=== PATIENT | male | born 1940 | race Caucasian/White ===

== ENCOUNTER 2023-01-13 17:11 | Inpatient (IN) | payer MEDICARE ==
[~2023-01-13] VITALS: Ht 190.5 cm; Wt 112.0 kg
[~2023-01-13 17:11] MED LIST: ASPIRIN E.C. 8181 MG PO; AVODART 0.5MG0.5 MG PO; CALTRATE 600600 MG PO; CENTRUM SILVER1 CTB PO; MYSOLINE 5050 MG/TAB PO; SIMVASTATIN80 MG PO; VITAMIN E1000 U/CAP PO
[2023-01-14 09:18] LABS: BILIRUBIN,TOTAL 0.4 mg/dL (0.2-1.2); CALCIUM 9.3 mg/dL (8.4-10.2); CREATININE, serum 1.02 mg/dL (0.72-1.25); POTASSIUM 4.5 mmol/L (3.5-4.5); TOTAL PROTEIN 6.4 gm/dL (6.2-8.1)
[2023-01-14] MEDS ORDERED: ELIQUIS 2.5 PO (09:24)
[2023-01-14] MEDS ORDERED: NORVASC 10MG10 MG PO (09:24)
[2023-01-14] MEDS ORDERED: LIPITOR20 MG PO (09:25)
[2023-01-14] MEDS ORDERED: ULTRAM 50MG TAB50 MG PO (09:25)
[2023-01-14] MEDS ORDERED: PROBIOTIC ACID1 EAC3 PO (09:27)
[2023-01-14] MEDS ORDERED: MYRBETR50MG PO (09:27)
[2023-01-14 09:29] LABS: BASO % 0.4 % (0.0-2.0); EOS # 0.2 K/mm3 (0.0-0.7); EOS % 1.9 % (0.0-4.0); GRAN # 5.7 K/mm3 (1.4-6.5); HEMATOCRIT 44.1 % (42.0-52.0); HEMOGLOBIN 14.9 g/dl (13.5-18.0); LYMPH # 1.4 K/mm3 (1.2-3.4); LYMPH % 16.8 % (20.0-51.0); MEAN CELL VOLUME 97 fl (80.0-100.0); MEAN CORPUSCULAR HEMOGLOBIN 33 pg (27-31); MEAN CORPUSCULAR HGB CONC 34 g/dl (33.0-37.0); MEAN PLATELET VOLUME 10.4 fl (7.4-10.4); MONO % 11.7 % (1.7-9.3); PLATELET COUNT 187 K/mm3 (130-400); RED BLOOD COUNT 4.53 M/mm3 (4.20-5.60); REDCELL DISTRIBUTION WIDTH-CV 12.4 % (11.5-14.5)
[2023-01-14 09:31] LABS: INR 1.4 (0.8-3.0); PROTHROMBIN TIME 15.1 SECONDS (9.7-12.8)
[2023-01-14 12:19] VITALS: BP 118/71; PULSE 105; TEMP 97.6
[2023-01-14 12:30] VITALS: BP_SYST 118
[2023-01-14 15:39] VITALS: BP 116/81; PULSE 87; TEMP 97.4
[2023-01-14 15:44] VITALS: BP_SYST 116
[2023-01-14 20:05] VITALS: BP 125/87; PULSE 93; TEMP 98.2
[2023-01-14 20:30] VITALS: BP_SYST 125
[2023-01-15] VITALS (10 sets, daily range): BP systolic 100–124; BP diastolic 62–87; PULSE 58–106; TEMP 97.4–987
[2023-01-16] VITALS (10 sets, daily range): BP systolic 102–134; BP diastolic 54–87; PULSE 58–84; TEMP 97.7–97.9
[2023-01-16 09:09] LABS: BASO % 0.4 % (0.0-2.0); EOS # 0.3 K/mm3 (0.0-0.7); GRAN # 5.6 K/mm3 (1.4-6.5); HEMATOCRIT 45.5 % (42.0-52.0); HEMOGLOBIN 15.4 g/dl (13.5-18.0); LYMPH # 1.4 K/mm3 (1.2-3.4); MEAN CELL VOLUME 97 fl (80.0-100.0); MEAN CORPUSCULAR HEMOGLOBIN 33 pg (27-31); MEAN CORPUSCULAR HGB CONC 34 g/dl (33.0-37.0); MONO # 0.8 K/mm3 (0.1-0.6); MONO % 10.2 % (1.7-9.3); PLATELET COUNT 202 K/mm3 (130-400); RED BLOOD COUNT 4.68 M/mm3 (4.20-5.60); REDCELL DISTRIBUTION WIDTH-CV 12.3 % (11.5-14.5)
[2023-01-16 09:21] LABS: CALCIUM 9.2 mg/dL (8.4-10.2); CREATININE, serum 0.99 mg/dL (0.72-1.25); POTASSIUM 4.2 mmol/L (3.5-4.5)
[2023-01-16] MEDS ORDERED: ELIQUIS 5MG PO (11:50)
[2023-01-16] MEDS ORDERED: BETAPACE 80MG80 MG PO (11:51)
== END 2023-01-16 15:02 | disposition home or self-care (01) | DRG 262 ==
LOC: MEDICAL 01-14 08:16
PROVIDERS: ADMIT Internal Medicine Cardiovascular Disease
PROC: 0JH632Z Insertion of Monitoring Device into Chest Subcutaneous Tissue and Fascia, Percutaneous Approach (ICD-10-PCS; principal; 2023-01-16)
PROC: 5A2204Z Restoration of Cardiac Rhythm, Single (ICD-10-PCS; 2023-01-16)
DX: I48.0 Paroxysmal atrial fibrillation (principal); I08.1 Rheumatic disorders of both mitral and tricuspid valves; Z23 Encounter for immunization
CPT/HCPCS: J2704